=== PATIENT | female | born 1950 | race African-American/Black ===

== ENCOUNTER 2024-09-17 12:34 | Inpatient (IN) | payer MEDICARE, OTHER ==
[~2024-09-17] VITALS: Ht 170.2 cm; Wt 100.0 kg
[2024-09-17] MEDS ORDERED: LISI2.5T13 PO (12:41)
[2024-09-17] MEDS ORDERED: HYDR25TA2 PO (12:41)
[2024-09-17] MEDS ORDERED: CLON0.1T2 PO (12:41)
[2024-09-17 13:37] LABS: BASOPHILS % (AUTO) 0.5 % (0.0-2.0); HEMATOCRIT 39.6 % (36-46); HEMOGLOBIN 13.2 g/dL (12.0-16.0); LYMPHOCYTES # (AUTO) 0.4 K/uL (1.0-4.8); LYMPHOCYTES % (AUTO) 9.2 % (22.0-44.0); MEAN CORPUSCULAR HEMOGLOBIN 31.6 pg (26.0-34.0); MEAN CORPUSCULAR HGB CONC 33.4 G/dL (31.0-37.0); MEAN CORPUSCULAR VOLUME 95 fL (80-100); MONOCYTES # (AUTO) 0.5 K/uL (0.1-1.0); NEUTROPHILS # (AUTO) 3.7 K/uL (1.8-7.7); NEUTROPHILS % (AUTO) 76.3 % (40.0-70.0); PLATELET COUNT (AUTO) 215 K/uL (150-450); RED BLOOD CELL COUNT(AUTO) 4.19 MIL/uL (4.00-5.20); RED CELL DISTRIBUTION WIDTH 13.7 % (11.5-14.5); WHITE BLOOD COUNT (AUTO) 4.9 K/uL (4.5-11.0)
[2024-09-17 14:07] LABS: TROPONIN I-HIGH SENSITIVITY 10 ng/L (<51)
[2024-09-17 14:14] LABS: ANION GAP 6 mmol/L (8-16); CALCIUM, TOTAL 9.2 mg/dL (8.8-10.5); CARBON DIOXIDE 35 mmol/L (22-29); CHLORIDE 100 mmol/L (98-107); CREATININE 0.64 mg/dL (0.60-1.30); GLOMERULAR FILTR. RATE CALC > 60 mL/min (>60); GLUCOSE,RANDOM 95 mg/dL (70-110); POTASSIUM 3.8 mmol/L (3.5-5.1); SODIUM SERUM 141 mmol/L (136-145); UREA NITROGEN, BLOOD 9 mg/dL (7-18)
[2024-09-17 14:18] LABS: B-TYPE NATRIURETIC PEPTIDE 28 pg/mL (0-100)
[2024-09-17] MEDS ORDERED: ACETAMINOPHEN 500 MG TABLET PO ONE (14:45)
[2024-09-17] MEDS ORDERED: ACET-3385 PO (14:58)
[2024-09-17] MEDS ORDERED: AZIT250T9 PO (14:58)
[2024-09-17] MEDS ORDERED: HYDROCODONE/ACETAMINOPHEN 10-325 MG TABLET PO ONE (15:15)
[2024-09-17 15:17] LABS: COVID AG,FIA SOURCE NASAL SWAB
[2024-09-17] MEDS ORDERED: FLUT16H NASAL (15:24)
[2024-09-17] MEDS ORDERED: ATOR40TA71 PO (15:24)
[2024-09-17] MEDS ORDERED: DOCU100C33 PO (15:24)
[2024-09-17] MEDS ORDERED: BENA40TA92 PO (15:24)
[2024-09-17 15:27] LABS: APPEARANCE,URINE CLEAR (CLEAR); BILIRUBIN,URINE NEGATIVE (NEGATIVE); COLOR,URINE LIGHT YELLOW (YELLOW); GLUCOSE, URINE (UA) NEGATIVE (NEGATIVE); KETONES,URINE NEGATIVE (NEGATIVE); LEUKOCYTE ESTERASE ,URINE NEGATIVE (NEGATIVE); NITRATE,URINE NEGATIVE (NEGATIVE); OCCULT BLOOD,URINE NEGATIVE (NEGATIVE); PH,URINE 8.5 (5.0-8.0); PROTEIN,URINE TRACE mg/dL (NEGATIVE); SPECIFIC GRAVITIY, URINE 1.015 (1.003-1.030)
[2024-09-17] MEDS: ACETAMINOPHEN 1000 MG/ISO-OSM 100 ML IV ONE (15:48)
[2024-09-17] MEDS: OxyCODONE HCL 5 MG IR TABLET PO ONE (15:48)
[2024-09-17] MEDS: SODIUM CHLORIDE 0.9% 1,000 ML IV ONE (15:48)
[2024-09-17 16:13] LABS: SARS-COV2 (COVID) ANTIGEN,FIA Negative (Negative)
[2024-09-17 16:14] LABS: INFLUENZA TYPE A NEGATIVE FOR TYPE A (NEGATIVE); INFLUENZA TYPE B NEGATIVE FOR TYPE B (NEGATIVE)
[2024-09-17] MEDS: AZITHROMYCIN 500 MG/NS 250 ML IV ONE (17:31)
[2024-09-17] MEDS: CloNIDine HCL 0.1 MG TABLET PO ONE (17:48)
[2024-09-17] MEDS ORDERED: ONDANSETRON HCL 4 MG/2 ML VIAL IVP PRN (18:45)
[2024-09-17] MEDS ORDERED: ALBUTEROL SULFATE 2.5 MG/0.5 ML NEB SOLUTION NEB PRN (18:45)
[2024-09-17] MEDS ORDERED: DOCUSATE SODIUM 100 MG CAPSULE PO PRN (18:45)
[2024-09-17] MEDS ORDERED: MORPHINE SULFATE 2 MG/ML SYRINGE IVP PRN (18:45)
[2024-09-17] MEDS ORDERED: ZOLPIDEM TARTRATE 5 MG TABLET PO PRN (18:45)
[2024-09-17] MEDS ORDERED: MAGNESIUM HYDROXIDE SUSPENSION 30 ML UDCUP PO PRN (18:45)
[2024-09-17] MEDS ORDERED: IPRATROPIUM BROMIDE 0.5 MG/2.5 ML NEB SOLUTION NEB PRN (18:45)
[2024-09-17] MEDS ORDERED: BISACODYL 10 MG RECTAL RECTAL SUPPOSITORY PR PRN (18:45)
[2024-09-17] MEDS ORDERED: ACETAMINOPHEN 325 MG TABLET PO PRN (18:45)
[2024-09-17] MEDS ORDERED: FLUTICASONE PROPIONATE 50 MCG/SPRAY 16 GM NASAL SPRAY NASAL PRN (18:45)
[2024-09-17] MEDS: CloNIDine HCL 0.1 MG TABLET PO SCH (20:23)
[2024-09-18 00:15] VITALS: BP 174/86; PULSE 104; RESP 19; TEMP 99.8; O2SAT 98
[2024-09-18] MEDS: OxyCODONE HCL/ACETAMINOPHEN 10-325 MG TABLET PO PRN (01:11)
[2024-09-18] MEDS: HEPARIN SODIUM,PORCINE 5,000 UNITS/ML VIAL SQ SCH (01:11)
[2024-09-18] MEDS: CloNIDine HCL 0.1 MG TABLET PO ONE (01:21)
[2024-09-18 04:36] VITALS: BP 122/59; PULSE 86; RESP 19; TEMP 98.4; O2SAT 95
[2024-09-18] MEDS ORDERED: PANTOPRAZOLE SODIUM 40 MG DR TABLET PO SCH (09:00)
[2024-09-18] MEDS ORDERED: BENAZEPRIL HCL 20 MG TABLET PO SCH (09:00)
[2024-09-18] MEDS ORDERED: HYDROCHLOROTHIAZIDE 25 MG TABLET PO SCH (09:00)
[2024-09-18] MEDS ORDERED: AZITHROMYCIN 500 MG/NS 250 ML IV SCH (17:00)
== END 2024-09-18 07:55 | disposition left against medical advice (07) | DRG 202 ==
LOC: EMS 12:51 → EDH 18:46 → 5S 23:53
PROVIDERS: ADMIT Hospitalist; ATTEND Hospitalist
DX: J40 Bronchitis, not specified as acute or chronic (principal); R65.10 Systemic inflammatory response syndrome (SIRS) of non-infectious origin without acute organ dysfunction; J06.9 Acute upper respiratory infection, unspecified; Z20.822 Contact with and (suspected) exposure to COVID-19; I16.0 Hypertensive urgency; I10 Essential (primary) hypertension; Z88.0 Allergy status to penicillin; Z90.710 Acquired absence of both cervix and uterus; Z53.29 Procedure and treatment not carried out because of patient's decision for other reasons
CPT/HCPCS: 71045; 80048; 81003; 83880; 84484; 85025; 87804; 93005; 99285; G0378; J0131; J0456; J1644; J7030; 36415-L1; 36415-TC